=== PATIENT | female | born 1985 | race American Indian/Alaskan Native ===

== ENCOUNTER 2016-11-26 09:03 | Emergency (ER) | payer OTHER ==
[2016-11-26 09:18] VITALS: BP 100/68
[2016-11-26] MEDS ORDERED: FIORICET PO ONE (09:35)
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
[2016-11-26] MEDS ORDERED: NORCO 5/325 PO ONE (09:50)
--- NOTE | 2016-11-26 10:37 | Cat Scan Report ---
CT HEAD WITHOUT CONTRAST INDICATION: Headache. COMPARISON: None similar at this institution. FINDINGS: Noncontrast head CT demonstrates normal, symmetric ventricles and sulci without acute or recent infarct, hemorrhage, mass effect or midline shift. No abnormal extra-axial fluid collections. Posterior fossa structures and basilar cisterns appear within normal limits. Symmetric eye globes. Clear paranasal sinuses and mastoid air cells. Intact calvarium. Normal overlying scalp soft tissues. Approximately 2.5 x 1.5 cm adenoids may be directly visualized. Multiple radiopaque dental material incidentally noted. CONCLUSION: No acute intracranial CT abnormality, as described. Thank you for the opportunity to participate in this patient's care.
== END 2016-11-26 11:10 | disposition home or self-care (01) ==
LOC: ED 09:03
DX: S13.4XXA Sprain of ligaments of cervical spine, initial encounter (principal); R51 Headache; R56.9 Unspecified convulsions; F17.200 Nicotine dependence, unspecified, uncomplicated; V89.2XXA Person injured in unspecified motor-vehicle accident, traffic, initial encounter; Y93.89 Activity, other specified; Y99.8 Other external cause status; Y92.89 Other specified places as the place of occurrence of the external cause
CPT/HCPCS: 70450

== ENCOUNTER 2020-08-06 23:25 | Emergency (ER) | payer OTHER | END 2020-08-07 07:00 | disposition left against medical advice (07) | LOC: ED 23:25 | DX: M79.641 Pain in right hand (principal); Z53.21 Procedure and treatment not carried out due to patient leaving prior to being seen by health care provider ==